=== PATIENT | male | born 1975 | race African-American/Black ===

== ENCOUNTER 2021-04-20 07:58 | Emergency (ER) | payer SELFPAY ==
--- NOTE | ~2021-04-20 | US_ITS ---
EXAMINATION:US venous doppler LE LT INDICATION:Leg swelling TECHNIQUE: Multiple grayscale, color flow and Doppler images of the left lower extremity deep venous systems were obtained and reviewed. COMPARISON:No prior studies for comparison. FINDINGS: The common femoral, superficial femoral and popliteal veins demonstrate normal respiratory variation, augmentation and compressibility. Color flow is also seen within the posterior tibial, pe roneal, greater saphenous and profunda veins. IMPRESSION: 1: No lower extremity deep venous thrombosis. Reviewed, dictated and finalized at location A.
[2021-04-20 08:50] VITALS: BP 166/103; PULSE 65; RESP 16; TEMP 36.5; O2SAT 100
--- NOTE | 2021-04-20 08:59 | ED.SKABFB ---
HPI - Skin/Abscess/Foreign Bdy General Chief complaint: Skin/Abscess/Foreign Body Stated complaint: leg issue Time Seen by Provider: 04/20/21 08:25 Source: patient and RN notes reviewed Mode of arrival: ambulatory Limitations: no limitations History of Present Illness HPI narrative: This is a 45 year old male who presents for evaluation of left leg cellulitis. He noticed redness to outside of his left leg 2 days ago . He has had worsening redness and swelling. HE denies leg pain, fever, nausea, vomiting, chest pain or shortness of breath. He was diagnosed with left leg cellulitis 2 years ago. Related Data Allergies Allergy/AdvReac Type Severity Reaction Status Date / Time Penicillins Allergy Verified 10/31/12 19:31 Review of Systems Review of Systems: All systems reviewed & are unremarkable except as noted in HPI and below PMFSH Past Medical History Medical History (Updated 04/20/21 @ 10:50 by Melinda Carney MD) Patient denies medical problems Surgical History Surgical History (Updated 04/20/21 @ 09:04 by Melinda Carney MD) No pertinent past surgical history Social History Social History (Updated 04/20/21 @ 09:04 by Melinda Carney MD) Smoking status: Never smoker Alcohol intake: never Substance use: never Exam Const: General: no acute distress and alert Orientation/consciousness: patient oriented x3 Eyes: EOM: EOMs intact bilaterally Chest: Chest palpation & inspection: normal inspection of the chest Resp: Effort & Inspection: normal respiratory effort and no retractions Auscultation: clear to auscultation bilaterally Cardio: Rate: regular rate Rhythm: regular rhythm GI: Auscultation: normal bowel sounds Neuro: General: patient oriented x3, moves all extremities and CN's II-XI intact bilaterally Extrem: Other: left lower leg swelling with patches of erythema to lateral leg, no tenderness, no crepitus Psych: Mental Status: mental status grossly normal Affect: normal affect Course Reevaluation(s) Reevaluation #1: Patient denies any other questions or concerns. He will be treated for cellulitis . He was given return precautions. Date: 04/20/21 Time: 10:49 Vital Signs Vital signs: Vital Signs Temperature 97.7 F 04/20/21 08:50 Pulse Rate 65 04/20/21 08:50 Respiratory Rate 16 04/20/21 08:50 Blood Pressure 166/103 H 04/20/21 08:50 Pulse Oximetry 100 04/20/21 08:50 Temperature 97.7 F 04/20/21 08:50 Pulse Rate 70 04/20/21 11:45 Respiratory Rate 16 04/20/21 11:45 Blood Pressure 158/100 H 04/20/21 11:45 Pulse Oximetry 100 04/20/21 11:45 MDM - Skin/Abscess/Foreign Bdy Imaging Data Radiologist's impression: ITS Impressions Venous Doppler Study 04/20/21 09:20 IMPRESSION: 1: No lower extremity deep venous thrombosis. Discharge Plan Discharge Clinical Impression: Cellulitis of left anterior lower leg Patient Disposition: Home, Self-Care Condition: Stable Instructions: Antibiotic Form, Cellulitis (ED) Additional Instructions: Today you were started on antibiotics for cellulitis. Take antibiotics as prescribed and complete full doses. Return if you develop worsening symptoms. Prescriptions: New clindamycin HCl 150 mg capsule 450 mg PO Q8H 10 Days Qty: 90 RF: 0 Follow-up/Referrals: PHYSICIAN,BARREL RIFLER BROACH [Primary Care Provider] - Pieter Gonzales MD [Physician] - Stand Alone Forms: Work/School Release IP
[2021-04-20] MEDS: CLINDAMYCIN HCL 150 MG CAP 450 MG PO (09:17)
[2021-04-20 11:45] VITALS: BP 158/100; PULSE 70; RESP 16; O2SAT 100
== END 2021-04-20 11:45 | disposition home or self-care (01) ==
PROVIDERS: Emergency Provider General Practice
DX: L03.116 Cellulitis of left lower limb (principal)
CPT/HCPCS: 93971; 99284; A9270

== ENCOUNTER 2023-12-09 04:11 | Observation (INO) | payer SELFPAY ==
[2023-12-09] VITALS (32 sets, daily range): BP systolic 132–184; BP diastolic 80–161; PULSE 83–112; RESP 16–26; TEMP 36.6–37.1; O2SAT 94–100; BMI 28.6
--- NOTE | ~2023-12-09 | XR_ITS ---
XR chest 2V DATE: 12/09/2023 04:48 INDICATION: Shortness of breath, left leg swelling TECHNIQUE: PA and lateral views COMPARISON: None FINDINGS: There is pulmonary vascular congestion and redistribution. There are bilateral Geneva B binu es. There is prominence of the fissures. Bilateral central and lower lung infiltrates are noted which may be due to pulmonary edema. Small ple ural effusions. IMPRESSION: Pulmonary edema, small pleural effusions Reviewed, dictated and finalized at location A.
--- NOTE | ~2023-12-09 | US_ITS ---
EXAMINATION: US venous doppler [facility] DATE: 12/09/2023 14:41 INDICATION: Lower limb edema. TECHNIQUE: Grayscale ultrasound images without and with compression and Doppler ultrasound images of the bilateral lower extremity veins were obtained. COMPARISON: Ultrasound 04/20/2021 FINDINGS: The visualized portions of right common femoral vein, profunda (deep) femoral vein, femoral vein, pop liteal vein, peroneal veins, posterior tibial veins, and greater saphenous vein outflow are patent. The visualized portions of left common femoral vein, profunda femoral vein, femoral vein, popliteal v ein, peroneal veins, posterior tibial veins, and greater saphenous vein outflow are patent. IMPRESSION: 1. No deep venous thrombosis. Reviewed, dictated and finalized at location E.
--- NOTE | ~2023-12-09 | CT_ITS ---
EXAMINATION: CTA chest PE protocol DATE: 12/09/2023 05:59 INDICATION: Shortness of breath. Leg leg swelling. TECHNIQUE: Computed tomography angiography (CTA) of the chest was performed with 100 mL Omnipaque-350 intravenous contrast timed to evaluate the pulmonary arteries. Coronal maximum intensity projection 3D-reconstructions were created by the technologist. Automated exposure control and iterative reconst ruction technique were employed. Exam dose: 353.44 mGy-cm total exam DLP. COMPARISON: 12/09/2023 PA and lateral chest FINDINGS: There is diagnostic contrast enhancement of the pulmonary arteries and no evidence of pulmo nary embolism. No thoracic aortic aneurysm. Heart size is within normal limits. Trace pericardial effusion. Mild/moderate bilateral pleural effusions. Geneva B lines and prominent pulmonary lobular septa consi stent with pulmonary edema. Mild bilateral pulmonary infiltrates predominating the central and lower lung zones, likely due to pulmonary edema. IMPRESSION: Congestive heart failure, pulmonary edema, mild to moderate pleural effusions No evidence of pulmonary embolism Reviewed, dictated and finalized at Location A. Reviewed, dictated and finalized at location A. IMPRESSION: Congestive heart failure, pulmonary edema, mild to moderate pleura l effusions No evidence of pulmonary embolism
--- NOTE | 2023-12-09 04:13 | ECG_ITS ---
SEE SCANNED COPY FOR CONFIRMED REPORT MTDD
--- NOTE | 2023-12-09 04:33 | ED.CHESTPAIN ---
HPI - Chest Pain General Chief Complaint: Chest Pain Stated Complaint: Chest tightness, coughing, SOB Time Seen by Provider: 12/09/23 04:17 History of Present Illness HPI narrative: This is a 48-year-old male, no significant past medical history, presents to the emergency department complaining dyspnea on exertion cough for the past 3 days. Patient states he developed a cough productive of white, nonbloody sputum. Yesterday he noticed while walking, he became short of breath. He states he has had chronic left lower extremity swelling attributed to cellulitis. He denies chest pain, nausea, vomiting, weakness/numbness has no other complaints at this time. Related Data Allergies Allergy/AdvReac Type Severity Reaction Status Date / Time Penicillins Allergy Anaphylaxis Verified 12/09/23 05:04 Review of Systems Review of Systems: All systems reviewed & are unremarkable except as noted in HPI and below PMFSH Past Medical History Medical History Patient denies medical problems Surgical History Surgical History No pertinent past surgical history Social History Social History Smoking status: Never smoker Alcohol intake: never Substance use: never Exam Narrative: GENERAL: Well-developed, well-nourished, and in no acute distress. HEAD: Normocephalic, atraumatic. EYES: PERRLA and EOMI. NECK: Supple. JVD to approximately 3 cm below the angle of jaw CHEST: Faint bilateral rales in the lower lung blackburn. No respiratory distress. No wheezes or rhonchi HEART: Regular rate and rhythm. No murmur heard. Normal peripheral pulses. ABDOMEN: Soft, nontender, nondistended, normal active bowel sounds. EXTREMITIES: Normal range of motion. No edema. SKIN: Warm, dry, no rash. NEURO: Alert and oriented x3. No focal deficit. Moving all 4 limbs spontaneously PSYCH: Normal mood and affect. Course Course Emergency Course: 06:45 - CBC demonstrates mild anemia with hemoglobin of 10.7 but is otherwise unremarkable. Chemistries demonstrate mild hypocalcemia of 8.3 but is otherwise unremarkable. Troponin negative at 0.020. BNP elevated at 2500. Chest x-ray by my interpretation showed changes concerning for left lower lobe consolidation. CT a of the chest shows bilateral pleural effusions and pulmonary edema without other focal consolidations or PE. I suspect the patient's symptoms are secondary to new onset CHF. I discussed these findings with the patient the recommendation for admission and Cardiology consultation. The patient voiced understanding and is comfortable with plan. 07:29 - I discussed patient with event staff, Dr. Anguiano who agrees to consult. 07:37 - I discussed patient with hospitalist, Dr. Soria who accepts admission to IMU. Vital Signs Vital signs: Vital Signs Temperature 98.4 F 12/09/23 05:07 Pulse Rate 90 12/09/23 05:07 Respiratory Rate 18 12/09/23 05:07 Blood Pressure 151/122 H 12/09/23 05:07 Pulse Oximetry 98 12/09/23 05:07 Oxygen Delivery Room Air 12/09/23 05:07 Temperature 98.4 F 12/09/23 05:07 Pulse Rate 93 12/09/23 07:19 Respiratory Rate 23 H 12/09/23 07:19 Blood Pressure 145/116 H 12/09/23 07:01 Pulse Oximetry 100 12/09/23 07:19 Oxygen Delivery Room Air 12/09/23 05:07 MDM - Chest Pain MDM Narrative Medical decision making narrative: Plan: Labs, imaging, EKG, troponin, pain control, reassess Differential Diagnosis Differential diagnosis: Likely pneumothorax and other (ACS, costochondritis, pleurisy, pneumonia, metabolic abnormality, other) Lab Data 12/09/23 04:59 12/09/23 04:59 Labs: Lab Results 12/09/23 12/09/23 Range/Units 04:59 04:59 WBC 6.7 (4.5-10.0) K/mm3 RBC 4.21 L (4.6-6.20) M/mm3 Hgb 10.7 L (14.0-18.0) g/dL Hct 33.2 L (42.0-52.
[2023-12-09 05:05] LABS: Basophils Percent Auto 0.5 % (0.2-1.2); Eosinophils Absolute Auto 0.2 K/mm3 (0-0.3); Eosinophils Percent Auto 2.6 % (0-4.4); Hematocrit 33.2 % (42.0-52.0); Hemoglobin 10.7 g/dL (14.0-18.0); Immature Granulocyte Absolute 0.02 K/mm3 (0.00-0.031); Immature Granulocyte Percent A 0.3 % (0-0.5); Lymphocytes Percent Auto 16.5 % (18.3-44.2); Mean Corpuscular HGB Conc 32.2 g/dl (32-36); Mean Corpuscular Hemoglobin 25.4 pg (26-34); Mean Corpuscular Volume 78.9 fl (80-100); Mean Platelet Volume 11.4 fl (7.4-10.4); Monocytes Absolute Auto 0.5 K/mm3 (0.1-0.6); Monocytes Percent Auto 6.8 % (2.6-8.5); Neutrophils Absolute Auto 4.9 K/mm3 (1.3-6.7); Neutrophils Percent Auto 73.3 % (45.5-73.1); Platelet Count Result 260 k/mm3 (150-375); Red Blood Count 4.21 M/mm3 (4.6-6.20); Red Cell Distribution Width 18.3 % (11.5-14.5); White Blood Count 6.7 K/mm3 (4.5-10.0)
[2023-12-09 05:15] LABS: INR 1.1; Prothrombin Time 14.1 Seconds (11.1-14.7)
[2023-12-09 05:16] LABS: Partial Thromboplastin Time 28.1 Seconds (22.3-36.8)
[2023-12-09 05:33] LABS: D Dimer 0.61 ug/mL (<0.48)
[2023-12-09 05:34] LABS: Alanine Aminotransferase 66 U/L (6-50); Albumin Level 3.5 g/dL (3.5-5.1); Alkaline Phosphatase 77 U/L (38-126); Anion Gap 1 mmol/L (4-12); Aspartate Amino Transferase 44 U/L (17-59); Bilirubin,Total 0.6 mg/dL (0.2-1.3); Blood Urea Nitrogen 11 mg/dL (9-20); Calcium 8.3 mg/dL (8.4-10.2); Carbon Dioxide 25 mmol/L (22-30); Chloride 111 mmol/L (98-107); Estimated CRCL calculation 111 ml/min; Estimated Glomerular Filt Rate > 60; Glucose 100 mg/dL (65-110); Lipase 39 U/L (23-300); Potassium 3.8 mmol/L (3.4-5.0); Sodium 137 mmol/L (137-145)
[2023-12-09 06:37] LABS: NT Pro B Type Natriuretic Pept 2500 pg/mL (19.9-100)
[2023-12-09] MEDS: ASPIRIN 81 MG CHEWABLE TABLET 324 MG PO (06:41)
[2023-12-09] MEDS: FUROSEMIDE INJ 40 MG/4 ML VIAL IV PUSH ×2 (07:29→17:55)
[2023-12-09 10:04] LABS: Troponin I 0.018 ng/mL (0.000-0.034)
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
--- NOTE | 2023-12-09 11:53 | ADMGEN ---
This patient, Malcolm Pulido, was admitted to IMU Room 205-01. Patient/family oriented to hospital policies and general routines including ID bracelet, bed and alarms, visiting hours, pain management, procedures, bathroom and other care routines, personal items, smoking policy, room service/diet, and visiting hours. Information on how to activate the Rapid Response Team has been discussed. Patient/Family are encouraged to report perceived risks to care and to ask questions if they do not understand what they are told or what they should do.
[2023-12-09 12:47] LABS: Troponin I 0.021 ng/mL (0.000-0.034)
[2023-12-09] MEDS: FAMOTIDINE 20 MG TABLET PO ×2 (13:13→21:30)
[2023-12-09] MEDS: VALSARTAN 20 MG TABLET PO (13:13)
[2023-12-09] MEDS: ENOXAPARIN 40 MG/0.4 ML SYRINGE SUB-Q (13:14)
[2023-12-09 13:45] LABS: Immunoglobulin A 169 mg/dL (70-400); Immunoglobulin G 764 mg/dL (700-1600); Immunoglobulin M 69 mg/dL (40-230)
[2023-12-09 13:48] LABS: Iron 42 ug/dL (49-181)
[2023-12-09 13:58] LABS: Percent Iron Saturation 11 % (20-50)
[2023-12-09 14:42] LABS: Folic Acid 7.6 ng/mL (2.76->20)
[2023-12-09 18:58] LABS: Appearance Urine Clear (Clear); Bilirubin Urine Negative (Negative); Blood Urine Negative (Negative); Color Urine Yellow (Yellow); Glucose Urine UA Negative (Negative); Ketones Urine Negative (Negative); Leukocyte Esterase Ur Negative LEU/UL (Negative); Nitrate Urine Negative (Negative); Protein Urine Negative (Negative); pH Urine 7.5 (5.0-9.0)
[2023-12-09 18:59] LABS: Add Urine Microscopic? NO
[2023-12-10] VITALS (18 sets, daily range): BP systolic 134–146; BP diastolic 92–107; PULSE 81–118; RESP 14–20; TEMP 36.1–37; O2SAT 99–100
--- NOTE | 2023-12-10 | ECHO_ITS ---
Patient Info Name: Malcolm Pulido Age: 48 years : 1975 Gender: Male Ht: 71 in Wt: 205 lbs BSA: 2.18 m2 HR: 93 bpm BP: 135 / 92 mmHg Heart Rhythm: Sinus Rhythm Technical Quality: Good Exam Date: 12/10/2023 10:35 AM Exam Location: Echo Lab Patient Status: Inpatient Admit Date: 12/09/2023 Staff Ordering Physician: Evens Soria MD Clin Tech: Monse Salazar RDCS Attending Provider: Evens Soria MD Exam Type: CA echo dop color flow w con Study Info Indications - chf Complete two-dimensional, color flow and Doppler transthoracic echocardiogram is performed with contrast to opacify the left ventricle and to improve the deliniation of the left ventricle endocardial borders. Contrast/Agitated Saline Contrast/Ag. Saline: Definity Amount: 2.00 ml Administered By: Monse Salazar RDCS Existing IV Access: Yes IV Access Condition: patent with no signs of infiltration Summary 1. Moderate left ventricular enlargement with global hypokinesia ejection fraction 35-40%. 2. Enlarged left atrium. 3. No valvular dysfunction. 4. Trivial pericardial effusion. Left Ventricle Left ventricular chamber dimension is mildly enlarged. Left ventricular systolic function is moderately reduced, estimated at 35-40%. The left ventricular diastolic function is normal. Right Ventricle Right ventricular chamber dimension is normal. Left Atria Left atrial chamber dimension is moderately enlarged. Right Atria Right atrial chamber dimension is normal. Aortic Valve The aortic valve is normal. Pulmonic Valve The pulmonic valve is normal. Mitral Valve The mitral valve has normal leaflets. Tricuspid Valve The tricuspid valve leaflets are normal. Pericardium/Pleural There is trivial pericardial effusion. Aorta The aortic root size at the sinus of Valsalva is normal. Report Signatures
[2023-12-10 04:54] LABS: Basophils Absolute Auto 0.1 K/mm3 (0.0-0.1); Eosinophils Absolute Auto 0.2 K/mm3 (0-0.3); Hematocrit 36.9 % (42.0-52.0); Hemoglobin 11.9 g/dL (14.0-18.0); Immature Granulocyte Absolute 0.02 K/mm3 (0.00-0.031); Immature Granulocyte Percent A 0.3 % (0-0.5); Lymphocytes Absolute Auto 1.31 K/mm3 (0.9-3.2); Lymphocytes Percent Auto 21.9 % (18.3-44.2); Mean Corpuscular HGB Conc 32.2 g/dl (32-36); Mean Corpuscular Volume 77.5 fl (80-100); Mean Platelet Volume 11.6 fl (7.4-10.4); Monocytes Absolute Auto 0.6 K/mm3 (0.1-0.6); Monocytes Percent Auto 9.2 % (2.6-8.5); Neutrophils Absolute Auto 3.9 K/mm3 (1.3-6.7); Neutrophils Percent Auto 64.6 % (45.5-73.1); Platelet Count Result 265 k/mm3 (150-375); Red Blood Count 4.76 M/mm3 (4.6-6.20); Red Cell Distribution Width 17.7 % (11.5-14.5)
[2023-12-10 05:15] LABS: Anion Gap 6 mmol/L (4-12); Blood Urea Nitrogen 9 mg/dL (9-20); Calcium 8.7 mg/dL (8.4-10.2); Carbon Dioxide 27 mmol/L (22-30); Chloride 106 mmol/L (98-107); Estimated CRCL calculation 87 ml/min; Estimated Glomerular Filt Rate > 60; Glucose 88 mg/dL (65-110); Potassium 3.1 mmol/L (3.4-5.0); Sodium 139 mmol/L (137-145)
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
[2023-12-10] MEDS: VALSARTAN 40 MG TABLET PO (10:11)
[2023-12-10] MEDS: ENOXAPARIN 40 MG/0.4 ML SYRINGE SUB-Q (10:11)
[2023-12-10] MEDS: POTASSIUM CHLORIDE 20 MEQ ER TABLET 40 MEQ PO (10:11)
[2023-12-10] MEDS: FAMOTIDINE 20 MG TABLET PO ×2 (10:11→20:21)
[2023-12-10] MEDS: FUROSEMIDE INJ 40 MG/4 ML VIAL IV PUSH ×2 (10:12→17:22)
[2023-12-10] MEDS: PERFLUTREN LIPID MICROSPHERES 1.5 ML VIAL DILUTED TO 10 ML TOTAL VOLUME IV PUSH (10:30)
--- NOTE | 2023-12-10 11:37 | IVDEFINITY ---
Prior to administration of IV Definity the patient was educated on the risks and benefits of the imaging enhancing agent including potential adverse side effects. The patient verbalized understanding. Allergies were verified. No exclusion criteria were identified and at least one of the following inclusion criteria were met: 1) physician request, 2) patient technically difficult to image (per the [place] [employer] guidelines of two or more segments not discernable within the apical view), or 3) questionable left ventricular function. ?
--- NOTE | 2023-12-10 17:17 | PM.IMPN ---
Progress Note: A&P Assessment and Plan (1) New onset of congestive heart failure: Code(s): I50.9 - Heart failure, unspecified Status: Acute Assessment and Plan: Patient presents with dyspnea, cough and orthopnea. CTA chest showing pulmonary edema and BNP 2500. Treated with IV Lasix with good response Consider viral CMP but suspect more likely hypertensive heart failure from unrecognized and undiagnosed HTN. DDimer positive: CTA negative for PE; LE venous doppler negative for DVT Echo showing moderate LV enlargement with global HK, EF 35-40% wand enlarged LA. No valvular disease. Cardiology consulted. Valsartan stopped and he was started on Toprol XL, Aldactone and Entresto Remains on Lasix IV. Change to oral tomorrow. Add empaglifloxin.Ischemic evaluation being considered. (2) Bilateral pleural effusion: Code(s): J90 - Pleural effusion, not elsewhere classified Status: Acute Assessment and Plan: Patient with mild-moderate pleural effusions. Suspect related to #1. As above (3) HTN (hypertension): Qualifiers: Hypertension type: unspecified Qualified Code(s): I10 - Essential (primary) hypertension Code(s): I10 - Essential (primary) hypertension Status: Acute Assessment and Plan: Patient's BP was elevated here in 2020 when he was here for cellulitis and again 1 week ago when preparing to have injection to his neck. He does not check his blood pressure and has never been told he has HTN Most likely essential HTN. Potassium normal and no metabolic acidosis. Chloride elevated however. UA clear. Started on valsartan but now changed to Entresto. Toprol XL added BP better. Lower BP slowly. (4) Microcytic anemia: Code(s): D50.9 - Iron deficiency anemia, unspecified Status: Acute Assessment and Plan: Patient with microcytic anemia found to be iron deficient. Iron 42, TIBC 366 with TSat 11% and Ferritin 14. B12/Folate normal. TSH normal. Start IV iron. Stool guaiac ordered Plan DVT prophylaxis - lovenox code status - full Subjective Date/time seen: 12/10/23 17:17 Interval history: 48yo healthy male who presents with complaints of cough, dyspnea and orthopnea.?? Feels much better. No CP or SOB. Slept well and able to lie flat. Exam Narrative: AF 98.5 138/107 90 18 100% ra Gen - NARD Chest - decreased BS in the left base o/w clear. nml RR CV - RRR S1/S2; Tele showing occasional PVCs Abd - soft, NT/ND, +BS Ext - scant left LE pedal edema Neuro - nonfocal Psych - normal mood and affect. Skin - warm and dry. Objective Data Vital Signs Vital Signs: Vital Signs - 24 hr 12/09/23 18:00 12/09/23 19:48 12/09/23 20:00 Temperature 97.8 F Pulse Rate 87 86 86 Respiratory Rate 18 18 Blood Pressure 139/109 H Pulse Oximetry 100 100 Oxygen Delivery Room Air 12/09/23 23:20 12/09/23 23:22 12/09/23 20:00 Temperature 97.9 F Pulse Rate 85 85 92 Respiratory Rate 19 19 Blood Pressure 160/101 H Pulse Oximetry 100 100 Oxygen Delivery Room Air 12/09/23 22:00 12/10/23 00:00 12/10/23 02:00 Temperature Pulse Rate 87 90 93 Respiratory Rate Blood Pressure Pulse Oximetry Oxygen Delivery 12/10/23 04:22 12/09/23 21:50 12/10/23 04:00 Temperature 98.6 F Pulse Rate 88 88 Respiratory Rate 18 18 Blood Pressure 135/92 H Pulse Oximetry 99 100 99 Oxygen Delivery Room Air Room Air 12/10/23 04:00 12/10/23 05:48 12/10/23 07:47 Temperature 98.5 F Pulse Rate 81 93 95 Respiratory Rate 16 Blood Pressure 141/104 H Pulse Oximetry 99 Oxygen Delivery 12/10/23 08:00 12/10/23 10:00 12/10/23 11:42 Temperature 98.5 F Pulse Rate 84 90 90 Respiratory Rate 14 Blood Pressure 134/94 H Pulse Oximetry 100 Oxygen Delivery 12/10/23 12:00 12/10/23 15:25 12/10/23 14:00 Temperature 98.5 F Pulse Rate 89 90 118 H Respiratory Rate 18 Blood Pressure 1
[2023-12-10] MEDS: SACUBITRIL/VALSARTAN 24-26 MG TABLET 1 TAB PO (20:21)
[2023-12-10] MEDS: IRON SUCROSE COMPLEX 100 MG in SODIUM CHLORIDE 0.9% IV 50 ML 220 MG IVPB (20:22)
[2023-12-11] VITALS (10 sets, daily range): BP systolic 136–139; BP diastolic 94–101; PULSE 78–116; RESP 12–20; TEMP 36.6–37; O2SAT 97–100
[2023-12-11 04:36] LABS: Hematocrit 40.5 % (42.0-52.0); Hemoglobin 13.1 g/dL (14.0-18.0); Mean Corpuscular HGB Conc 32.3 g/dl (32-36); Mean Corpuscular Volume 77.3 fl (80-100); Mean Platelet Volume 11.1 fl (7.4-10.4); Platelet Count Result 300 k/mm3 (150-375); Red Blood Count 5.24 M/mm3 (4.6-6.20); Red Cell Distribution Width 18.7 % (11.5-14.5); White Blood Count 6.2 K/mm3 (4.5-10.0)
[2023-12-11 04:55] LABS: Anion Gap 7 mmol/L (4-12); Blood Urea Nitrogen 9 mg/dL (9-20); Calcium 8.6 mg/dL (8.4-10.2); Carbon Dioxide 26 mmol/L (22-30); Chloride 104 mmol/L (98-107); Estimated CRCL calculation 87 ml/min; Estimated Glomerular Filt Rate > 60; Glucose 93 mg/dL (65-110); Potassium 3.3 mmol/L (3.4-5.0); Sodium 137 mmol/L (137-145)
[2023-12-11] MEDS: ENOXAPARIN 40 MG/0.4 ML SYRINGE SUB-Q (08:54)
[2023-12-11] MEDS: EMPAGLIFLOZIN 10 MG TABLET PO (08:54)
[2023-12-11] MEDS: IRON SUCROSE COMPLEX 100 MG in SODIUM CHLORIDE 0.9% IV 50 ML 220 MG IVPB (08:55)
[2023-12-11] MEDS: FUROSEMIDE INJ 40 MG/4 ML VIAL IV PUSH (08:55)
[2023-12-11] MEDS: FAMOTIDINE 20 MG TABLET PO (08:55)
[2023-12-11] MEDS: METOPROLOL SUCCINATE EXT REL 25 MG TABCR PO (08:55)
[2023-12-11] MEDS: SPIRONOLACTONE 25 MG TABLET PO (08:55)
[2023-12-11] MEDS: SACUBITRIL/VALSARTAN 24-26 MG TABLET 1 TAB PO (08:55)
--- NOTE | 2023-12-11 09:46 | PM.PNCARD ---
Progress Note: A&P Assessment and Plan (1) Cardiomyopathy: Code(s): I42.9 - Cardiomyopathy, unspecified Status: Acute Assessment and Plan: EF 35-50%. This is a new diagnosis, presumably a hypertensive cardiomyopathy. He has been started on GDMT with Entresto, jardiance, spironolactone, and metoprolol. Unfortunately, he is uninsured therefore entresto will be prohibitively expensive for him. Will shift him back to Valsartan. Continue spironolactone, metoprolol, jardiance (hopefully he can afford his) Will change furosemide to 40mg p.o. daily Continue supplemental KCL BMP in one week as an outpatient Will order outpatient lexiscan for ischemic eval OK to discharge today from a cardiac perspective (2) New onset of congestive heart failure: Code(s): I50.9 - Heart failure, unspecified Status: Acute Assessment and Plan: Improved with IV diuresis. (3) HTN (hypertension): Qualifiers: Hypertension type: unspecified Qualified Code(s): I10 - Essential (primary) hypertension Code(s): I10 - Essential (primary) hypertension Status: Acute Assessment and Plan: Improving, but remains above goal. May need to adjust antihypertensives as an outpatient. Subjective Date/time seen: 12/11/23 09:46 Interval history: Cardiology follow up for CHF He is feeling well this morning and has no complaints. He denies any orthopnea, shortness of breath, edema, chest pain. Review of Systems Eyes: Eyes: Reports no additional eye complaints ENT: Reports system reviewed and no additional complaints, except as documented Cardiovascular: Cardiovascular: Reports as per HPI and Reports dyspnea Respiratory: Respiratory: Reports cough and Reports dyspnea Gastrointestinal: Gastrointestinal: Reports no additional gastrointestinal complaints Musculoskeletal: Musculoskeletal: Reports no additional musculoskeletal complaints Integumentary/Breasts: Skin/Breast: Reports system reviewed and no additional complaints, except as docu Endocrine: Endocrine: Reports no additional endocrine complaints Hematologic/Lymphatic: Hematologic/Lymphatic: Reports no additional hematologic/lymphatic complaints Allergic/Immunologic: Allergic/Immunologic: Reports no additional allergic/immunologic complaints Exam Const: General: comfortable and no acute distress Other: Very pleasant comfortable appearing black male appearing his stated age no distress of any kind HENMT: Mouth: Yes moist mucous membranes Eyes: Sclera: sclerae normal Neck: Neck: supple and no JVD Resp: Effort & Inspection: normal respiratory effort Auscultation: clear to auscultation bilaterally Cardio: Rate: regular rate Rhythm: regular rhythm GI: Auscultation: normal bowel sounds Skin: General skin exam: normal color Neuro: Other: Alert and oriented x3 Extrem: Other: Good perfusion no significant edema Objective Data Vital Signs Vital Signs: Vital Signs - 24 hr 12/10/23 10:00 12/10/23 11:42 12/10/23 12:00 Temperature 36.9 C Pulse Rate 90 90 89 Respiratory Rate 14 Blood Pressure 134/94 H Pulse Oximetry 100 Oxygen Delivery 12/10/23 15:25 12/10/23 14:00 12/10/23 16:00 Temperature 36.9 C Pulse Rate 90 118 H 89 Respiratory Rate 18 Blood Pressure 138/107 H Pulse Oximetry 100 Oxygen Delivery 12/10/23 18:00 12/10/23 19:51 12/10/23 20:00 Temperature 36.1 C L Pulse Rate 89 88 83 Respiratory Rate 20 Blood Pressure 142/96 H Pulse Oximetry 100 Oxygen Delivery 12/10/23 20:00 12/10/23 22:00 12/10/23 23:43 Temperature 36.4 C Pulse Rate 83 84 89 Respiratory Rate 20 20 Blood Pressure 146/96 H Pulse Oximetry 100 99 Oxygen Delivery Room Air 12/11/23 00:00 12/11/23 00:00 12/11/23 02:00 Temperature Pulse Rate 85 85 82 Respiratory Rate 20 Blood Pressure Pulse Oximetry 99 Oxygen Delivery Room Air 12/11/23
[2023-12-11 10:16] LABS: IFOB Positive Control Positive; Immunochemical Fecal Occult Bl Negative (N)
[2023-12-11] MEDS: POTASSIUM CHLORIDE 20 MEQ PACKET (FOR LIQUID) PO (11:37)
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
== END 2023-12-11 13:21 | disposition home or self-care (01) ==
LOC: ANHED 07:23 → ANHIMU 09:04
PROVIDERS: Admitting Provider Internal Medicine; Emergency Provider Preventive Medicine Aerospace Medicine; Visit Provider Family Medicine
DX: I11.0 Hypertensive heart disease with heart failure (principal); I50.9 Heart failure, unspecified; I42.9 Cardiomyopathy, unspecified; J90 Pleural effusion, not elsewhere classified; R06.09 Other forms of dyspnea; I89.0 Lymphedema, not elsewhere classified; D50.9 Iron deficiency anemia, unspecified; Z87.891 Personal history of nicotine dependence; F12.90 Cannabis use, unspecified, uncomplicated
CPT/HCPCS: 36415; 71046; 71275; 80048; 80053; 81003; 82274; 82607; 82728; 82746; 82784; 83540; 83550; 83690; 83735; 83880; 84443; 84484; 85025; 85027; 85380; 85610; 85730; 93005; 93306; 93970; 96372; 96374; 96375; 99285; A9270; G0378; J1650; J1756; J1940; Q9957; Q9967

== ENCOUNTER 2025-03-31 22:09 | Emergency (ER) | payer OTHER, SELFPAY ==
--- NOTE | ~2025-03-31 | CT_ITS ---
EXAM: CT abdomen pelvis w con - 04/01/2025 0:55 CDT History: 49 years old Male with epigastric pain, lower abd pain TECHNIQUE: Multidetector CT of the abdomen and pelvis with intravenous contrast. Coronal and sagittal reformats were also provided for review. Automatic exposure control was used for this study. CONTRAST: 100 cc of Optiray 350 was used for this study. COMPARISON: None Available. FINDINGS: VISUALIZED CHEST: Visualized lungs are clear. ABDOMEN and PELVIS: LIVER: Within normal limits. GALLBLADDER: No calcified gallstones. BILE DUCTS: No dilatation. SPLEEN: Within normal limits. PANCREAS: Within normal limits. ADRENAL GLANDS: Within normal limits. KIDNEYS and URETERS: No hydronephrosis or hydroureter. No nephroureterolithiasis. URINARY BLADDER: Severe diffuse thickening of the urinary bladder wall. STOMACH and BOWEL: No abnormal bowel wall thickening. No obstruction. REPRODUCTIVE ORGANS: Within normal limits. MESENTERY/PERITONEAL CAVITY: No free fluid or pneumoperitoneum. LYMPH NODES: No abdominal or pelvic lymphadenopathy. ABDOMINAL WALL: Small fat-containing umbilical hernia. VASCULATURE: Within normal limits. MUSCULOSKELETAL: Multilevel degenerative changes of the spine. IMPRESSION: 1. Diffuse wall thickening of the urinary bladder. Correlate with urinalysis to rule out possible acute cystitis. Reviewed, dictated and finalized at location N. IMPRESSION: 1. Diffuse wall thickening of the urinary bladder. Correlate with urinalysis t o rule out possible acute cystitis.
[2025-03-31 22:10] VITALS: BP 124/91; PULSE 99; RESP 18; TEMP 37.8; O2SAT 97
[2025-03-31 22:37] LABS: Hematocrit 43.1 % (42.0-52.0); Hemoglobin 14.3 g/dL (14.0-18.0); Immature Granulocyte Percent A 0.3 % (0-0.5); Lymphocytes Absolute Auto 1.09 K/mm3 (0.9-3.2); Mean Corpuscular HGB Conc 33.2 g/dl (32-36); Mean Corpuscular Hemoglobin 26.9 pg (26-34); Mean Corpuscular Volume 81.0 fl (80-100); Nucleated Red Blood Cells Absolute Auto 0.000 K/mm3 (0.0-0.012); Nucleated Red Blood Cells Perc 0.0 % (0.0-0.2); Platelet Count Result 244 k/mm3 (150-375); Red Blood Count 5.32 M/mm3 (4.6-6.20); White Blood Count 7.5 K/mm3 (4.5-10.0)
[2025-03-31 22:47] LABS: Alanine Aminotransferase 16 U/L (6-50); Albumin Level 4.3 g/dL (3.5-5.1); Alkaline Phosphatase 94 U/L (38-126); Anion Gap 10 mmol/L (4-12); Aspartate Amino Transferase 22 U/L (17-59); Bilirubin,Total 0.8 mg/dL (0.2-1.3); Blood Urea Nitrogen 19 mg/dL (9-20); Calcium 9.0 mg/dL (8.4-10.2); Carbon Dioxide 29 mmol/L (22-30); Chloride 97 mmol/L (98-107); Estimated CRCL calculation 87 ml/min; Estimated Glomerular Filt Rate > 60; Glucose 123 mg/dL (65-110); Lipase 589 U/L (23-300); Potassium 3.1 mmol/L (3.4-5.0); Sodium 136 mmol/L (137-145); Total Protein 7.5 g/dL (6.3-8.2)
--- NOTE | 2025-03-31 23:28 | PC.NURSE ---
Pt chart, labs, voluntary form, and [facility] paperwork faxed at this time to intake number provided by crisis.
[2025-03-31 23:46] VITALS: BP 150/100; PULSE 70; RESP 16; TEMP 37.2; O2SAT 100
[2025-04-01] VITALS (15 sets, daily range): BP systolic 137–190; BP diastolic 90–117; PULSE 60–82; RESP 10–21; TEMP 36.3; O2SAT 99–100
[2025-04-01 00:04] LABS: Glucose Urine UA Negative (Negative); Leukocyte Esterase Ur Trace LEU/UL (Negative); Nitrate Urine Negative (Negative); Specific Grav Ur 1.024 (1.001-1.035)
[2025-04-01 00:05] LABS: Need Manual Microscopic Reviewed
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
--- OUTSIDE RECORDS SUMMARY | 2025-04-01 00:05 | XMS_ITS | Clinical Summary ---
Author Organization [facility] Address [facility] [place] [address] Care Team Providers Care Inspector Insulation Name Role Phone None, Provider MD Primary Care Provider Unavaila ble Allergies Active Allergy Reactions Criticality Noted Date Comments Penicillins Rash Low 05/13/2019 Medications hydrocodone-acetami nophen 5-325 MG tabletIndications:A cute Pain < 3 Day Supply Take 1 tablet by mouth every 6 (six) hours as needed. Indications : Acute Pain < 3 Day Supply 12 tablet 9 Active ondansetron (ZOFRAN-ODT) 4 MG disintegrating tablet Take 1 tablet (4 mg total) by mouth every 8 (eight) hours as needed for Nausea. 20 tablet 3 Active Social History Tobacco Use Types Packs/Day Years Used Date Smoking Tobacco: Every Day Cigarettes Smokeless Tobacco: Never Alcohol Use Standard Drinks/Week Comments No 0 (1 standard drink = 0.6 oz pur e alcohol) AUDIT-C Answer Date Recorded Frequency of Alcohol Consumption Never 05/13/2019 Average Number of Drinks Not on file 019 Frequency of Binge Drinking Not on file 04/29 Sex and Gender Information Value Date Recorded Sex Assigned at Not on file Legal Sex Male 8:31 PM CDT Gender Identity Not on file Sexual Orientation Not on file Last Filed Vital Signs Vital Sign Reading Time Taken Comments Blood Pressure 132/108 12/17/2022 11:45 PM CDT Pulse 51 12/17/2022 11:45 PM CDT Temperature 36.5 C (97.7 F) 12/17/2022 8:23 PM CDT Respiratory Rate 16 12/17/2022 11:4 5 PM CDT Oxygen Saturation 100% 12/17/2022 11: 45 PM CDT Inhaled Oxygen Concentration - - Weight 103.4 kg (227 lb 15.3 oz) 2022 12:28 AM CDT Height 180.3 cm (5' 11) 12/17/2022 8:23 PM CDT Body Mass Index 31.79 12/17/2022 12:28 AM CDT Plan of Treatment Health Maintenance Due Date Last Done Comments Colorectal Cancer Screening Colonoscopy (10 Years) 1977 Annual Physical 1980 Hepatitis C 10/28/1995 DTaP, Tdap and Td Vaccines ( 1 - Tdap) 1996 Hepatitis B Vaccines (1 of 3 - 19+ 3-dose series) 1996 Pneumococcal Vaccine: Pediat rics (0 to 5 Years) and At-Risk Patients (6 to 49 Years) (1 of 2 - PCV) 1996 COVID-19 Vaccine (2023-2 5 season) 2024 Meningococcal B Vaccine Aged Out No l onger eligible based on patient's age to complete this topic Meningococcal Vaccine Aged Out No swathi albert eligible based on patient's age to complete this topic RSV Immunizations Under 20 Months Aged Out No longer eligible based on patient's age to complete this topic Advance Directives Documents on File Type Date Recorded Patient Software Writer Expl anation Legal Documents 03/21/2021 12:09 PM NO REP RESENTED BY RAGHAV WIN LAW Care Teams Inspector Insulation Relationship Specialty Start Date End Date None, Provider, PCP - General 05/13/19
[2025-04-01 00:06] LABS: Add Urine Microscopic? YES; Appearance Urine Clear (Clear)
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
[2025-04-01 00:33] LABS: Magnesium 2.0 mg/dL (1.6-2.3)
[2025-04-01] MEDS: POTASSIUM CHLORIDE 20 MEQ PACKET (FOR LIQUID) 40 MEQ PO (00:53)
[2025-04-01] MEDS: KETOROLAC 30 MG/ML VIAL (*BKC) IV PUSH (00:53)
[2025-04-01] MEDS: SODIUM CHLORIDE 0.9% IV 1,000 ML 999 ML IV CONT (00:53)
[2025-04-01] MEDS: FAMOTIDINE 20 MG/2 ML VIAL IV PUSH (00:53)
[2025-04-01] MEDS: ONDANSETRON INJ 4 MG/2 ML VIAL IV PUSH (00:53)
[2025-04-01 01:17] LABS: Influenza A QL RT-PCR Negative (Negative); Influenza B QL RT-PCR Negative (Negative); RSV RNA, RT-PCR Negative (Negative); SARS-CoV-2 RNA PCR Negative (Negative)
--- NOTE | 2025-04-01 01:30 | PC.NURSE ---
KING Sanford made aware of pt elevated BP readings. Pt reports he has not been able to keep his medications down after taking them d/t n/v. No further orders at this time.
== END 2025-04-01 04:39 | disposition home or self-care (01) ==
PROVIDERS: Emergency Provider Physician Assistant
DX: K29.00 Acute gastritis without bleeding (principal); Z20.822 Contact with and (suspected) exposure to COVID-19; I10 Essential (primary) hypertension; I89.0 Lymphedema, not elsewhere classified; Z87.891 Personal history of nicotine dependence; Z79.899 Other long term (current) drug therapy
CPT/HCPCS: 36415; 74177; 80053; 81001; 83690; 83735; 85025; 87637; 96361; 96374; 96375; 99284; A9270; J1885; J2405; J7030; Q9967